=== PATIENT | male | born 1975 | race Caucasian/White ===

== ENCOUNTER 2016-09-09 17:10 | Emergency (ER) | payer BC ==
[~2016-09-09] VITALS: Ht 167.6 cm; Wt 99.8 kg
--- NOTE | 2016-09-09 18:30 | NUR ---
Patient discharged to home in stable conditon. Written and verbal after care instructions given. Patient verbalizes understanding of instructions.
== END 2016-09-09 18:33 | disposition home or self-care (01) ==
LOC: ER 17:10
DX: S93.401A Sprain of unspecified ligament of right ankle, initial encounter (principal); X58.XXXA Exposure to other specified factors, initial encounter; Y93.64 Activity, baseball; Y99.8 Other external cause status; Y92.89 Other specified places as the place of occurrence of the external cause
CPT/HCPCS: 73610; A4663

== ENCOUNTER 2017-02-10 09:52 | Emergency (ER) | payer BC ==
[~2017-02-10] VITALS: Ht 170.2 cm; Wt 97.5 kg
--- NOTE | 2017-02-10 10:12 | NUR ---
PT IS IN ROOM #2B. DR TAYLOR EVALUATED THE PT.
--- NOTE | 2017-02-10 10:20 | NUR ---
PT WAS D/C TO HOME, AFTER ER MD EVALUATION. D/C INSTRUCTIONS GIVEN TO THE PT.
[2017-02-10 10:21] VITALS: BP 139/88
== END 2017-02-10 10:22 | disposition home or self-care (01) ==
LOC: ER 09:52
DX: L08.9 Local infection of the skin and subcutaneous tissue, unspecified (principal)
CPT/HCPCS: A4663

== ENCOUNTER 2017-02-17 17:06 | Emergency (ER) | payer SELFPAY ==
[~2017-02-17] VITALS: Ht 167.6 cm; Wt 97.5 kg
[2017-02-17] MEDS ORDERED: SULF1TAB48 PO (17:31)
--- NOTE | 2017-02-17 17:46 | NUR ---
Patient discharged to home in stable conditon. Written and verbal after care instructions given to patient and family. Patient and family verbalized understanding of instructions.
== END 2017-02-17 17:48 | disposition home or self-care (01) ==
LOC: ER 17:15
DX: L27.0 Generalized skin eruption due to drugs and medicaments taken internally (principal); T37.0X5A Adverse effect of sulfonamides, initial encounter; Y92.9 Unspecified place or not applicable
CPT/HCPCS: A4663

== ENCOUNTER 2017-03-10 15:38 | Emergency (ER) | payer SELFPAY ==
[~2017-03-10] VITALS: Ht 167.6 cm; Wt 99.8 kg
[~2017-03-10 15:38] MED LIST: SULF1TAB48 PO
--- NOTE | 2017-03-10 16:15 | NUR ---
Patient discharged to home in stable conditon. Written and verbal after care instructions given to patient with "OFF work for a week" note from Dr Wilson. Patient verbalizes understanding of instructions.
== END 2017-03-10 16:16 | disposition home or self-care (01) ==
LOC: ER 15:41
DX: L03.032 Cellulitis of left toe (principal); Z88.1 Allergy status to other antibiotic agents; Z88.2 Allergy status to sulfonamides
CPT/HCPCS: 82962; 99283; A4663

== ENCOUNTER 2019-07-22 20:15 | Emergency (ER) | payer SELFPAY ==
[~2019-07-22] VITALS: Ht 167.6 cm; Wt 104.3 kg
--- NOTE | 2019-07-22 20:40 | NUR ---
Dr. Hartman at bedside for MSE.
[2019-07-22] MEDS ORDERED: LIDOCAINE HCL 1% 20 ML VIAL IJ ONE (20:45)
--- NOTE | 2019-07-22 21:07 | NUR ---
Pt provided urine sample, sent to lab.
[2019-07-22 21:11] LABS: *BILIRUBIN,URIN 1+ (NEGATIVE); *COLOR,URINE DARK YELLOW (YELLOW); *KETONES,URINE NEGATIVE (NEGATIVE); LEUKOCYTE ESTERASE ,URINE NEGATIVE (NEGATIVE); NITRITE, URINE NEGATIVE (NEGATIVE); PH,URINE 5.5 (5.0-8.0); UGLUCOSE 1+ (NEGATIVE)
[2019-07-22 21:18] LABS: BASOPHILS % (AUTO) 0.3 % (0.0-2.0); EOSINOPHILS # (AUTO) 0.1 K/uL (0.0-0.7); EOSINOPHILS % (AUTO) 1.7 % (0.0-7.0); HEMATOCRIT 42.3 % (36.7-47.1); HEMOGLOBIN 15.1 g/dL (12.5-16.3); LYMPHOCYTES # (AUTO) 2.4 K/uL (20.0-40.0); LYMPHOCYTES % (AUTO) 28.2 % (20.5-51.5); MEAN CORPUSCULAR HEMOGLOBIN 33.9 uug (23.8-33.4); MEAN CORPUSCULAR HGB CONC 36 g/dL (32.5-36.3); MEAN CORPUSCULAR VOLUME 94.9 fL (73.0-96.2); MONOCYTES # (AUTO) 0.7 K/uL (2.0-10.0); NEUTROPHILS # (AUTO) 5.2 K/uL (1.8-8.9); NEUTROPHILS % (AUTO) 61.8 % (38.5-71.5); PLATELET COUNT (AUTO) 264 K/uL (152-348); RED BLOOD CELL COUNT(AUTO) 4.46 MIL/uL (4.06-5.63); WHITE BLOOD COUNT (AUTO) 8.5 K/uL (3.6-10.2)
[2019-07-22 21:27] LABS: CREATININE 1.2 mg/dL (0.6-1.3); POTASSIUM 3.7 mmol/L (3.5-5.1)
[2019-07-22 21:37] LABS: *BLOOD, URINE TRACE (NEGATIVE)
[2019-07-22] MEDS ORDERED: TDAP DIPH,PERTUSS,TET VAC/PF 0.5 ML DISP.SYRIN IM ONE ×2 (21:37→21:45)
[2019-07-22 21:38] LABS: *CLARITY,URINE CLOUDY (CLEAR)
[2019-07-22 21:39] LABS: MUCUS,URINE MODERATE /LPF (0-FEW); RBC,URINE 0-3 /HPF (0-3); SQUAMOUS EPITHELIAL CELL,UR FEW /HPF (NONE SEEN); URINE AMORPHOUS URATE MANY /HPF; WBC,URINE NONE SEEN /HPF (0-3)
--- NOTE | 2019-07-22 22:04 | NUR ---
Xray at bedside.
--- NOTE | 2019-07-22 22:26 | NUR ---
Patient discharged to home in stable conditon. Written and verbal after care instructions given. Patient verbalizes understanding of instructions. Pt ambulated out of ER with steady gait, no acute signs of distress, VSS, all belongings taken.
[2019-07-22 22:27] VITALS: BP 150/100
== END 2019-07-22 22:27 | disposition home or self-care (01) ==
LOC: ER 20:20
DX: L03.031 Cellulitis of right toe (principal); R73.9 Hyperglycemia, unspecified; R03.0 Elevated blood-pressure reading, without diagnosis of hypertension; Z88.2 Allergy status to sulfonamides; Z88.8 Allergy status to other drugs, medicaments and biological substances
CPT/HCPCS: 99284; 10060; 36415; 73660; 80048; 81001; 82962; 85025; 90471; 90715; J3490; A4217; A4663

== ENCOUNTER 2019-07-24 19:23 | Emergency (ER) | payer SELFPAY ==
[~2019-07-24] VITALS: Ht 167.6 cm; Wt 104.3 kg
--- NOTE | 2019-07-24 20:35 | NUR ---
Patient discharged to home in stable conditon. Written and verbal after care instructions given. Patient verbalizes understanding of instructions. Ambulated from ER with stable gait. All belongings with patient. VSS
[2019-07-24 20:36] VITALS: BP 144/87
== END 2019-07-24 20:36 | disposition home or self-care (01) ==
LOC: ER 19:26
DX: L03.031 Cellulitis of right toe (principal); R03.0 Elevated blood-pressure reading, without diagnosis of hypertension; R73.9 Hyperglycemia, unspecified; Z88.2 Allergy status to sulfonamides; Z88.8 Allergy status to other drugs, medicaments and biological substances; Z79.2 Long term (current) use of antibiotics
CPT/HCPCS: A4663